=== PATIENT | male | born 1975 | race Caucasian/White ===

== ENCOUNTER 2021-07-17 11:38 | Emergency (ER) | payer MEDICAID ==
[~2021-07-17] VITALS: Ht 152.4 cm; Wt 86.2 kg
[2021-07-17 11:45] VITALS: BP_SYST 136
--- NOTE | 2021-07-17 12:00 | NUR ---
Patient to ER bed 4 to gown for evaluation. Side rails up. Report given to CHETAN BAHENA.
[2021-07-17] MEDS ORDERED: LORazepam 2 MG/ML VIAL ONE (12:47)
[2021-07-17 12:58] LABS: BILIRUBIN,URINE NEGATIVE (NEGATIVE); BLOOD, URINE NEGATIVE (NEGATIVE); CLARITY/URINE CLEAR (CLEAR); COLOR,URINE YELLOW (YELLOW); GLUCOSE,URINE TRACE (NEGATIVE); KETONES,URINE NEGATIVE (NEGATIVE); LEUKOCYTE ESTERASE ,URINE NEGATIVE (NEGATIVE); NITRITE, URINE NEGATIVE (NEGATIVE); PROTEIN URINE NEGATIVE (NEGATIVE); UROBILINOGEN,URINE 0.2 (0.2-1.0)
[2021-07-17 13:04] LABS: BASOPHILS # (AUTO) 0.1 K/uL (0.0-0.2); BASOPHILS % (AUTO) 1.7 % (0.0-2.0); EOSINOPHILS % (AUTO) 0.7 % (0.0-4.0); HEMATOCRIT 47.6 % (36-54); HEMOGLOBIN 16.3 g/dL (14.0-18.0); LYMPHOCYTES # (AUTO) 1.3 K/uL (1.0-5.5); LYMPHOCYTES % (AUTO) 23.2 % (20.5-51.5); MEAN CORPUSCULAR HEMOGLOBIN 30 pg (27-31); MEAN CORPUSCULAR HGB CONC 34 % (32-36); MEAN CORPUSCULAR VOLUME 88 fL (79.0-98.0); MONOCYTES # (AUTO) 0.6 K/uL (0.0-1.0); MONOCYTES % (AUTO) 10.5 % (1.7-9.3); NEUTROPHILS # (AUTO) 3.7 K/uL (1.8-7.7); NEUTROPHILS % (AUTO) 63.9 % (40.0-70.0); PLATELET COUNT (AUTO) 108 K/uL (130-430); RED CELL DISTRIBUTION WIDTH 13.6 % (9.0-15.0); WHITE BLOOD COUNT (AUTO) 5.8 K/uL (4.8-10.8)
[2021-07-17] MEDS: NACL 0.9% 2,000 ML IV ONE (13:06)
[2021-07-17] MEDS: LORazepam 2 MG/ML VIAL IVP ONE ×2 (13:06→19:30)
[2021-07-17 13:12] LABS: CALCIUM 8.3 mg/dL (8.4-11.0); CREATININE 0.84 mg/dL (0.55-1.30); POTASSIUM 3.6 mmol/L (3.5-5.1)
[2021-07-17 13:13] LABS: BARBITURATE, URINE NEGATIVE (NEG <=200); BENZODIAZEPINE, URINE NEGATIVE (NEG <=150); CANNABINOID, URINE NEGATIVE (NEG <=50); COCAINE, URINE NEGATIVE (NEG <=150); METHAMPHETAMINES SCREEN,URINE NEGATIVE (NEG <=500); OPIATE, URINE NEGATIVE (NEG <=100); PHENCYCLIDINE SCREEN,URINE NEGATIVE (NEG <=25); UR TRICYCLIC ANTIDEPRESSANTS NEGATIVE (NEG <=300); URINE AMPHETAMINE NEGATIVE (NEG <=500); URINE METHADONE NEGATIVE (NEG <=200); URINE OXYCODONE SCREEN NEGATIVE (NEG <=100); URINE PROPOXYPHENE SCREEN NEGATIVE (NEG <=300)
[2021-07-17 13:14] LABS: PROTHROMBIN TIME 10.7 SECS (9.5-12.5)
[2021-07-17] MEDS: chlordiazePOXIDE HCL 25 MG CAPSULE PO ONE (13:16)
[2021-07-17 13:17] LABS: ALBUMIN 4.4 g/dL (3.4-4.8); TOTAL BILIRUBIN 0.6 mg/dL (0.0-1.0)
--- NOTE | 2021-07-17 13:50 | NUR ---
NOTIFIED ED ADMITTING REGARDING DR. REESE'S REQUEST FOR ADMISSION/TRANSFER. PER DR. REESE PT IS STABLE FOR TRANSFER. WILL CONTACT RETAIL MERCHANDISING SPECIALIST REGARDING THIS MATTER. PER FACESHEET: [facility]- ALLIED PHYS
--- NOTE | 2021-07-17 14:09 | NUR ---
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 STATED INSURANCE DOC WILL CALL BACK REGARDING PT STATUS. FAX: [phone]
--- NOTE | 2021-07-17 14:51 | NUR ---
Hien coley in EDM - 07/17/21 at 1452 by [email or web address] Medication reconciliation completed with information provided by [facility]. Any prior medication reconciliation on file was reviewed and corrected.
[2021-07-17] MEDS: FOLIC ACID 1 MG, THIAMINE HCL 100 MG, MAGNESIUM SULFATE 1 GM, MVI 10 ML in NACL 0.9% 1,... IV ONE (15:00)
--- NOTE | 2021-07-17 15:25 | NUR ---
COVID swab done at bedside, sample sent to lab
--- NOTE | 2021-07-17 16:00 | NUR ---
Called [phone] of [facility] and spoke to Juliette Bonilla. Report given to accepting Rn and patient will be admitted to [address] with Dr Perera as accepting physician.
[2021-07-17] MEDS ORDERED: PANTOPRAZOLE SODIUM 40 MG/VIAL (PROTONIX) ONE (18:50)
[2021-07-17] MEDS ORDERED: THIAMINE HCL 100 MG/ML VIAL ONE (18:51)
[2021-07-17] MEDS ORDERED: MAGNESIUM SULFATE 1 GM/2 ML VIAL ONE (18:51)
[2021-07-17] MEDS ORDERED: MAG-AL HYDROX/SIMETH 30 ML UDC ONE (18:51)
[2021-07-17] MEDS: PANTOPRAZOLE SODIUM 40 MG/VIAL (PROTONIX) IVP ONE (18:55)
[2021-07-17] MEDS: MAG HYDROX/AL HYDROX/SIMETH 30 ML, LIDOCAINE VISCOUS 2% 15ML (PO) 15 ML, DICYCLOMINE HC... PO ONE ×3 (18:56)
--- NOTE | 2021-07-17 19:10 | NUR ---
1910 RECD REPORT FROM CHETAN BAHENA FOR CONTINUITY OF CARE.
--- NOTE | 2021-07-17 20:51 | NUR ---
2000 BANANA BAG STARTED ON NS 1L BAG RUNNING AT RT WRIST
--- NOTE | 2021-07-17 20:52 | NUR ---
2030 AWAITING FOR AMBULANCE TO COME PICK HIM ETA 2029.
--- NOTE | 2021-07-17 21:17 | NUR ---
211 AMBULANCE CALLED THEY WILL COME AT 2200 FOR ETA.
--- NOTE | 2021-07-17 22:23 | NUR ---
2205 AMBULANCE CAME REPORT GIVEN TO THE CREW, VALERIANO.
[2021-07-17 22:24] VITALS: BP_SYST 145
== END 2021-07-17 22:23 | disposition short-term general hospital (02) ==
LOC: SED 11:38
DX: K85.90 Acute pancreatitis without necrosis or infection, unspecified (principal); K29.00 Acute gastritis without bleeding; F10.20 Alcohol dependence, uncomplicated; F10.239 Alcohol dependence with withdrawal, unspecified; I10 Essential (primary) hypertension; E11.9 Type 2 diabetes mellitus without complications; Y90.9 Presence of alcohol in blood, level not specified; Z20.822 Contact with and (suspected) exposure to COVID-19
CPT/HCPCS: 36415; 74021; 76705; 80053; 80307; 81003; 83690; 84484; 85025; 85610; 87426; 93005; 96361; 96365; 96366; 96375; 96376; 99285; C9113; J2060; J3411; J3475; J7030

== ENCOUNTER 2021-09-22 09:12 | Emergency (ER) | payer MEDICAID ==
[~2021-09-22] VITALS: Ht 167.6 cm; Wt 81.6 kg
[2021-09-22 09:15] VITALS: BP_SYST 132
--- NOTE | 2021-09-22 09:15 | NUR ---
Placed in room 3 . Placed on air conditioning unit assembler, blood pressure machine and pulse oximeter. To gown for exam. Side rails up. Report given to SHRUTI BOCANEGRA.
--- NOTE | 2021-09-22 09:16 | NUR ---
PT AMBULATES TO BATHROOM TO PROVIDE URINE SAMPLE, STEADY GAIT, REQUIRES REDIRECTION
--- NOTE | 2021-09-22 09:18 | NUR ---
ERMD AT BEDSIDE AT THIS TIME, PT EDUCATED NOT TO WALK AROUND ROOM FOR SAFETY
--- NOTE | 2021-09-22 09:30 | NUR ---
food tray given
--- NOTE | 2021-09-22 10:00 | NUR ---
PT PROVIDED WITH WATER AND BREAKFAST TRAY
--- NOTE | 2021-09-22 10:05 | NUR ---
LEFT FOR BROTHER JAKY [phone] FOR CALLBACK REGARDING PICKUP
--- NOTE | 2021-09-22 10:09 | NUR ---
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
--- NOTE | 2021-09-22 11:00 | NUR ---
pt continues to ambulate around the ER, redirected pt back to his room mutiple times including JACK FRAME TENDER
--- NOTE | 2021-09-22 11:12 | NUR ---
A/OX4 VSS VERBALIZED UNDERSTANDING OF DC INSTRUCTIONS, AMBULATED WITH STEADY GAIT WITH BROTHER WITH PRIVATED VEHICLE.
--- NOTE | 2021-09-22 11:12 | NUR ---
Patient given written and verbal discharge instructions and verbalizes understanding. ER MD discussed with patient the results and treatment provided. Patient in stable condition. ID arm band removeD Opportunity for questions provided and answered. Medication side effect fact sheet provided.
== END 2021-09-22 11:12 | disposition home or self-care (01) ==
LOC: SED 09:12
DX: F10.129 Alcohol abuse with intoxication, unspecified (principal); I10 Essential (primary) hypertension; E11.9 Type 2 diabetes mellitus without complications; Y90.9 Presence of alcohol in blood, level not specified
CPT/HCPCS: 99283